=== PATIENT | female | born 1955 ===

== ENCOUNTER 2025-03-16 09:56 | Outpatient (CLI) | payer MEDICARE, OTHER ==
--- NOTE | 2025-03-16 12:36 | RADIOLOGY REPORT ---
CLINICAL INDICATION: PAIN IN LEFT KNEE. TECHNIQUE: Multiplanar, multisequence MRI of the left knee was performed without contrast. Contrast: None. COMPARISON: None FINDINGS: Joint space and synovium: There is small knee joint effusion. No synovitis. Bones and articular cartilage: There is no evidence of acute fracture. There is bone marrow edema in the posterior aspect of the medial tibial plateau.. The alignment is normal. There is multifocal chondral thinning in the patellar apex and in the lateral patellar facet with focal high-grade full-thickness articular cartilage loss there is diffuse chondral thinning on both sides of the medial compartment. There is chondral thinning on both sides of the lateral compartment. Menisci: There is an undersurface tear of the posterior horn and body junction of the medial meniscus. There is a tear in the anterior horn and body of the lateral meniscus. Tendons and ligaments: The tendons in the posterior knee are intact. The extensor mechanism is intact. The anterior cruciate ligament is intact. The posterior cruciate ligament is intact. The medial collateral ligament and the lateral collateral ligament stabilizing complex are intact. Muscles: Regional muscles are preserved in bulk and signal characteristics. Other: None. IMPRESSION: 1. Undersurface tear of the posterior horn and body junction of the medial meniscus of the left knee. 2. Tear in the anterior horn and body of the lateral meniscus. 3. 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 4. Small knee joint effusion.
== END 2025-03-16 23:59 | disposition home or self-care (01) ==
LOC: MRI 09:56
PROVIDERS: ATTEND General Practice
DX: S83.242A Other tear of medial meniscus, current injury, left knee, initial encounter (principal); S83.282A Other tear of lateral meniscus, current injury, left knee, initial encounter; M25.462 Effusion, left knee; R60.0 Localized edema; M25.562 Pain in left knee; X58.XXXA Exposure to other specified factors, initial encounter; Y93.89 Activity, other specified; Y92.89 Other specified places as the place of occurrence of the external cause; Y99.8 Other external cause status
CPT/HCPCS: 73721